=== PATIENT | female | born 1990 | race Caucasian/White ===

== ENCOUNTER 2017-09-08 14:46 | Emergency (ER) | payer OTHER ==
--- NOTE | 2017-09-08 14:52 | ED Physician Documentation ---
General Adult - HISTORIAN Historian: patient - HPI Stated Complaint: she is - and her left arm is hurting after a fall. Chief Complaint: Upper Extremity Injury Onset: days ago (4) Timing: still present Severity: mild Location: left arm pain /shoulder Further Comments: yes (She did have a fall a few days ago . She did not have any injury that was concerning with and baby is moving fine. She continues to have left arm pain with movement No numbness. No decreased ROM) Last known Well Code/Unknown Code: Unknown - ROS CONST: no problems EYES/ENT: none CVS/RESP: none MS/SKIN/LYMPH: none NEURO/PSYCH: denies: headache, fainting, dizziness - PAST HX Past History: none Other History: none Surgeries/Procedures: none Allergies/Adverse Reactions: Allergies Allergy/AdvReac Type Severity Reaction Status Date / Time No Known Allergies Allergy Verified 09/08/17 14:58 Home Medications: Ambulatory Orders Medication Instructions Recorded NK [NK] 09/08/17 - SOCIAL HX Smoking History: non-smoker Alcohol Use: none Drug Use: none - FAMILY HX Family History: No - VITAL SIGNS Vital Signs: Vital Signs Temp Pulse Resp BP Pulse Ox 108/70 09/25/15 09:52 - REVIEWED ASSESSMENTS Nursing Assessment Reviewed: Yes Vitals Reviewed: Yes Progress - Progress Progress: U/S was used to capture Heart Rate of baby approx 136-138 . DG General Adult Physical Exam - PHYSICAL EXAM GENERAL APPEARANCE: no distress EENT: eye inspection normal RESPIRATORY: no resp distress, chest non-tender CVS: reg rate & rhythm, heart sounds normal ABDOMEN: soft SKIN: warm/dry EXTREMITIES: other (left upper arm pain (mild per her report) with palpation FROM Pulses + ) NEURO: oriented X3, CN's nml as tested, motor nml, sensation nml, mood/affect nml, cognition normal Discharge Clincal Impression: Arm pain Qualifiers: Laterality: left Qualified Code(s): M79.602 - Pain in left arm Referrals: Xochilt Gross PRN [REFERRING] - 2 Days Additional Instructions: Ice/Heat Muscle pain Condition: Stable Disposition: 01 HOME, SELF-CARE Decision to Admit: NO Date of Decison to Admit: 09/08/17 Decision Time: 15:08
[2017-09-08 14:58] VITALS: BP 134/53
== END 2017-09-08 15:12 | disposition home or self-care (01) ==
LOC: ED 14:46
DX: M79.602 Pain in left arm (principal)
CPT/HCPCS: 99283

== ENCOUNTER 2018-10-06 15:12 | Emergency (ER) | payer OTHER ==
[2018-10-06 15:26] VITALS: BP 114/65
--- NOTE | 2018-10-06 16:56 | ED Physician Documentation ---
Upper Respiratory Symptoms - HISTORIAN Historian: patient - HPI Stated Complaint: Sore throat Chief Complaint: Sore Throat Additional Information: intro self as [employer]. pt presents to the ED via POV c/o sore throat, hoarse voice x 4 days denies other symptoms or complaints. pt denies current chest pain, dyspnea, syncope/near syncope, headache, dizziness, visual disturbances, n/v/d, fever/chills, rash, sick contacts, dysuria, trauma. melena or hematochezia, bleeding or easy bruising, change in bowel or bladder function, no recent weight loss/gain, anxiety or depression. ROS Negative unless otherwise specified. - ROS CONST/EYES: other (sore throat). denies: weakness, eye redness, eye itching CVS/RESP: denies: none, chest pain, shortness of breath, palpitations, other LYMPH: denies: leg swelling, rash, swollen glands, ankle swelling, other GI/: denies: none, abdominal pain, problems urinating, vomiting, nausea, diarrhea, black stools, other NEURO/PSYCH: denies: fainting, dizziness, confusion, anxiety, depression, other MS/SKIN: denies: joint pain, muscle aches, rash, other - PAST HX Lung Disease: none Surgeries/Procedures: none Allergies/Adverse Reactions: Allergies Allergy/AdvReac Type Severity Reaction Status Date / Time No Known Allergies Allergy Verified 10/06/18 15:26 Home Medications: Ambulatory Orders Medication Instructions Recorded Norgestimate-Ethinyl Estradiol 1 tab PO D 10/06/18 [Sprintec 28 Day Tablet] - SOCIAL HX Smoking History: non-smoker Alcohol Use: none Drug Use: none - FAMILY HX Family History: other (HTN) - VITAL SIGNS Vital Signs: Vital Signs Temp Pulse Resp BP Pulse Ox 98.5 F 73 16 114/65 100 10/06/18 17:01 10/06/18 17:01 10/06/18 17:01 10/06/18 17:01 10/06/18 17:01 - REVIEWED ASSESSMENTS Nursing Assessment Reviewed: Yes Vitals Reviewed: Yes Upper Respiratory Symptoms - EXAM General Appearance: no acute distress, alert EENT: eyes nml inspection, lids & conjunct. nml, PERRL, ear nml, nose nml, airway nml, pharyngeal erythema. No: pain over sinuses, conjunctival erythema Neck: thyroid normal, lymphadenopathy Respiratory: no resp. distress, breath sounds nml, no pain on inspiration, speaks full sentences, no pleuritic chest pain Abdomen: non-tender, no organomegaly, nml bowel sounds, no distention CVS: reg rate & rhythm, heart sounds normal, equal pulses, no murmur, no gallop, PMI nml, no JVD, no friction rub, 24 Skin: color nml, no rash, warm,dry Extremities: non-tender, normal range of motion, no evidence of injury, no edema, J, [employer] Neuro/Psych: oriented x3, neuro intact, mood/affect nml Discharge Clincal Impression: Pharyngitis Qualifiers: Pharyngitis/tonsillitis etiology: other specified organisms Qualified Code(s): J02.8 - Acute pharyngitis due to other specified organisms Referrals: Primary Doctor,No [Primary Care Provider] - 2 Days Additional Instructions: Rest Increase fluids like gatoraid or other electrolyte replacement. Prednisone 5 mg taper once daily as directed azithromycin 250 mg. Two tabs day one. One tab days 2-5 Ibuprofen 600 mg every 6 hours for fever/inflammation Tylenol 650 mg every 4-6 hours for pain/fever take multivitamin daily use cool humidifier in room you are sleeping. you may sit in bathroom outside hot shower to inhale the steam to soothe lungs seek medical care immediately if difficult to wake, difficulty breathing, feeling faint or fainting, increased rash, chest pain, shortness of breath, or fever not controlled by tylenol/motrin or any concern. follow up with primary care next week or before if not improving as expected. PLEASE UNDERSTAND THAT THIS IS AN EMERGENCY EVALUATION FOR YOUR COMPLAINT AND BY NATURE IS LIMITED AND NOT A SUBSTITUTE FOR ONGOING MEDICAL CARE. EVEN THOUGH TEST RESULTS AND TREATMENT PLAN WERE EXPLAINED THERE MAY BE A NEED FOR ADDITIONAL TESTING TO FULLY DETERMINE THE EXTENT OF YOUR ILLNESS/INJURY/OR CONCERN SO YOU SHOULD CONTACT AND OR ESTABLISH WITH A PRIMARY CARE PROVIDER (OR REFERRAL DOCTOR IF APPLICABLE) FOR AN APPOINTMENT SOON POSSIBLE Condition: Good Disposition: 01 HOME, SELF-CARE Decision to Admit: NO Date of Decison to Admit: 10/06/18 Decision Time: 16:54
== END 2018-10-06 17:01 | disposition home or self-care (01) ==
LOC: ED 15:12
DX: J02.8 Acute pharyngitis due to other specified organisms (principal)
CPT/HCPCS: 87070; 87880; 99282; 99283